=== PATIENT | female | born 1995 | race Caucasian/White ===

== ENCOUNTER 2016-08-31 13:31 | Emergency (ER) | payer OTHER ==
[~2016-08-31] VITALS: Ht 160 cm; Wt 79.5 kg
[2016-08-31 13:34] VITALS: BP 123/85; PULSE 95; RESP 16; O2SAT 98
--- NOTE | 2016-08-31 13:43 | ED.REPORT ---
HPI-Head Prob / Injury Date of Service August 31, 2016 ED Provider: Benito Sunshine MD Pt is a 20 year old female with a hx of knee problems presenting to the ED post fall last night complaining of a severe headache onset last night when her knee gave out and she fell and hit her head in her kitchen. Associated symptoms include dizziness, speech problems, confusion, fatigue and nausea. She denies fever. Her ex-boyfriend reports that the pt had 2 episodes of rapid breathing and shaking last night and once this morning. He states that it took him an hour to wake the pt from the episodes both times, and that she was completely unresponsive during the episodes. Her ex-boyfriend reports that the pt has a hx of breathing irregularities, which has not happened for a while but happened last night. Pt denies hx of seizures, but states that she has a hx of "blackouts" and had a seizure workup and EKG in [place] 1.5-2 years ago. Was told she did not have epileptic seizures. Pt has not seen a neurologist since. She was seen at [facility] ER last night just after the injury occurred. Reviewed records, no imaging. Nursing Notes Chief Complaint: Head, Face, Neck Trauma Nursing Notes Reviewed: Yes Allergies: Coded Allergies: amoxicillin (Verified Allergy, Unknown, 08/31/16) naproxen (Verified Allergy, Unknown, 08/31/16) General Time Seen by Provider: 14:34 Chief Complaint Other (Hit Head) Hx Obtained From: Patient Arrived By: Walk-in Onset Occurred: Yesterday Symptom Duration: Since onset Caused by: Fall while (Knee gave out) Quality: Painful Severity: Current: Severe Severity: Maximum: Severe Recent Healthcare: No recent hospitalization, Recent doctor visit Similar Sx Previous: No Past Medical History Past Medical History Notes: PCP: Sushila Benjamin at [facility] Past Medical History Chronic right knee pain Past Surgical History unkown Smoking History Light Tobacco Smoker Social History Alcohol Use: "Social" Drug Use: THC Ambulatory Status Cane Review of Systems Constitutional: Reports: Fatigue, Denies: Fever GI: Reports: Nausea Neurologic: Reports: Confusion, Dizziness, Headache, Unable to speak Complete sys rev & neg: except as marked. Physical Exam Initial Vital Signs Vital Signs (First) Date Time Temp Pulse Resp B/P Pulse Ox O2 Delivery O2 Flow Rate FiO2 08/31/16 13:34 36.7 95 16 123/85 98 Room Air Initial VS: Reviewed Respiratory: Breath sounds normal, Clear to auscultation, No respiratory distress Abdomen / GI: No distention Back: No CVA tenderness Extremities: Vascular intact, Neuro intact Skin: Warm, Dry Psychiatric: Mood/affect normal, Behavior normal, Normal thought content General/Constitutional: Awake, Alert Head / Eyes: Normocephalic, PERRL, EOMI ENT: Atraumatic, Airway patent, Mucous membranes moist No tongue laceration. Neck: Supple Cardiovascular: Heart rate NL, Regular rhythm, Heart sounds NL, No gallop, No murmurs, No rubs Interpretation & Diagnostics Interpretation & Diagnostics: Urine test negative. Tox screen negative. Lab Results Interpretation Result Diagram: 08/31/16 1458 08/31/16 1458 Test 08/31/16 14:58 White Blood Count 5.8th/mm3 (3.8-10.1) Red Blood Count 5.07mil/mm3 (3.90-5.20) Hemoglobin 14.7g/dL (12.0-15.6) Hematocrit 43.8% (35.0-46.0) Mean Corpuscular Volume 86.4fL (81-100) Mean Corpuscular Hemoglobin 29.0pg (27.0-35.0) Mean Corpuscular Hemoglobin Concent 33.6% (32.0-37.0) Red Cell Distribution Width 12.9% (12.3-15.4) Platelet Count 196bil/L (150-400) Neutrophils (%) (Auto) 66.6% (40-74) Lymphocytes (%) (Auto) 24.9% (14-46) Monocytes (%) (Auto) 7.7% (4-12) Eosinophils (%) (Auto) 0.3% (0-5) Basophils (%) (Auto) 0.2% (0-3) Sodium Level 139mEq/L (134-144) Potassium Level 3.7mEq/L (3.5-5.2) Chloride Level 102mEq/L (97-108) Carbon Dioxide Level 23mmol/L (18-29) Blood Urea Nitrogen 8mg/dL (6-20) Creatinine 0.74mg/dL (0.57-1.00) Estimat Glomerular Filtration Rate 142mL/min (>59) Glucose Level 107mg/dL (60-99) Calcium Level 9.3mg/dL (8.5-10.1) Total Bilirubin 1.7mg/dL (0.0-1.2) Aspartate Amino Transf (AST/SGOT) 16U/L (0-50) Alanine Aminotransferase (ALT/SGPT) 9U/L (0-32) Alkaline Phosphatase 56U/L (25-150) Total Protein 7.4g/dL (6.4-8.4) Albumin 4.2g/dL (3.4-5.0) Hold Stewart Top Tube Received (Received) CT Head Interpretation IMPRESSION: No acute intracranial disease process. Dictated by: Karla Benitez MD, PhD on 08/31/2016 at 14:02 Study: Head CT no contrast Interpretation / Wet Read by: Interpret - Radiologist Re-Eval/Medical Decision Med Decision/Clinical Course 20 year old female with headache and "seizures" last night and this am after a minor head injury. Has a history of seizure like events, with a reportedly (by patient) negative eval for seizures by EEG about 2 years ago. No objective findings for seizure such as bit cathi, low CO2 or leukocytosis. Will discharge to follow up with primary care. Re-Evaluation/Progress : Time of Eval: 16:19 Patient Status: Condition improved Re-Evaluation/Progress Note: Pt headache improved. Discussed lab results and plan for discharge. Pt understands and agrees. Counseled Regarding: Diagnosis, Lab results, Need for follow-up, When/why to return to ED Discharge & Departure Primary Impression: Pseudoseizures Additional Impression: Headache Disposition: Home All VS Reviewed: Yes Condition: Improved Additional Instructions: Your emergency room visit today included interview, examination, CT scan, and labs. While it is impossible to know for certain, it does not appear that she had a true epileptic type seizure this morning. It is common to have headaches after a blow to the head there does not appear to be a serious head injury at present. May use Tylenol as needed for headaches, no more than 3000 mg in 1 day , rest and follow-up with primary care soon. If having further episodes of shaking and decreased responsiveness, 911 should be called. Return to emergency department if this occurs. Referrals: OTHER,PHYSICIAN Scribe Attestation Portions of this note were transcribed by Mile Tatum. I, Dr. Sunshine personally performed the history, physical exam and medical decision-making; I reviewed and confirmed the accuracy of the information in the transcribed note. Signed by : Zacarias Hi, 08/31/16 at 1628. Benito Sunshine MD August 31, 2016 13:42 MILE TATUM August 31, 2016 14:28
--- NOTE | 2016-08-31 14:05 | DRSVH ---
PROCEDURE: CT BRAIN WITHOUT CONTRAST ([id number]) INDICATIONS: head injury, seizures TECHNIQUE: Noncontrast 4.5 mm thick angled axial sections acquired from the foramen magnum to the vertex, with c oronal reformats. COMPARISON: None. FINDINGS: Image quality: Excellent. CSF spaces: Basal cisterns are patent. No extra-axial fluid collections. Ventricles are normal in size and shape. Brain: No midline shift. No intracranial masses or hemorrhage. Farrell-white matter interface is norm al. Skull and face: Calvarium and visualized facial bones are intact, without suspicious lesions. Sinuses: Visualized sinuses and mastoids are clear. IMPRESSION: No acute intracranial disease process. Dictated by: Karla Benitez MD, PhD on 08/31/2016 at 14:02 Approved by: Karla Benitez MD, PhD on 08/31/2016 at 14:04
[2016-08-31] MEDS ORDERED: Vecuronium 1,000 mCg/mL 10 mL Inj IVPUSH ONE (14:35)
[2016-08-31 15:14] LABS: BASOPHILS % (AUTO) 0.2 % (0-3); EOSINOPHILS % (AUTO) 0.3 % (0-5); MONOCYTES % (AUTO) 7.7 % (4-12); Mean Corpuscular Volume 86.4 fL (81-100); NEUTROPHILS % (AUTO) 66.6 % (40-74); Platelet Count 196 bil/L (150-400)
[2016-08-31 16:11] VITALS: BP 116/76; PULSE 90; RESP 16; O2SAT 98
[2016-08-31 16:38] VITALS: BP 116/76; PULSE 90; RESP 16; O2SAT 98
== END 2016-08-31 16:38 | disposition home or self-care (01) ==
LOC: SED 13:31
DX: G40.89 Other seizures (principal); R51 Headache; S09.90XA Unspecified injury of head, initial encounter; W18.30XA Fall on same level, unspecified, initial encounter; W22.8XXA Striking against or struck by other objects, initial encounter; Y92.000 Kitchen of unspecified non-institutional (private) residence as the place of occurrence of the external cause; Y93.89 Activity, other specified; Y99.8 Other external cause status; R42 Dizziness and giddiness; R41.0 Disorientation, unspecified; R11.0 Nausea; R53.83 Other fatigue; R47.9 Unspecified speech disturbances; M25.561 Pain in right knee; G89.29 Other chronic pain; F17.200 Nicotine dependence, unspecified, uncomplicated; Z88.0 Allergy status to penicillin; Z88.6 Allergy status to analgesic agent